=== PATIENT | male | born 2000 | race Caucasian/White ===

== ENCOUNTER 2021-04-18 11:58 | Emergency (ER) | payer BC ==
[~2021-04-18] VITALS: Ht 167.6 cm; Wt 75.0 kg
--- NOTE | 2021-04-18 12:55 | PHYS DOC ---
General Adult EDM: Chief Complaint: SUICDAL IDEATION HPI: HPI: Patient is a 20 year old male presents emergency department with mother bedside reporting he had a panic attack just prior to arrival the emergency room today. Patient reports he has history of panic attacks, took 1/2 mg Xanax approximately 1 hour ago and was unable to handle the overwhelming sensations of having several people around him while he was at [employer] today. Patient's mother reports that the patient stated "please do not let me kill myself ", patient's mother reports she was told by his counselor to bring him to the emergency department for any SI/HI statements. Patient currently denies homicidal or suicidal ideations. States he still feels overwhelmed however reports his sensations of panic have starting to resolve. 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 Patient denies other physical complaints or physical concerns. (SHERRI VÁZQUEZ APRN) Review of Systems: Review of Systems: 14 body systems of review of systems have been reviewed. See HPI for pertinent positives and negative responses, otherwise all other systems are negative, nonpertinent or noncontributory. Constitutional: Negative except as outlined in HPI above. Skin: Negative except as outlined in HPI above. Eyes: Negative except as outlined in HPI above. HENT: Negative except as outlined in HPI above. Respiratory: Negative except as outlined in HPI above. Cardiovascular: Negative except as outlined in HPI above. GI: Negative except as outlined in HPI above. : Negative except as outlined in HPI above. Musculoskeletal: Negative except as outlined in HPI above. Integument: Negative except as outlined in HPI above. Neurologic: Negative except as outlined in HPI above. Endocrine: Negative except as outlined in HPI above. Lymphatic: Negative except as outlined in HPI above. Psychiatric: Negative except as outlined in HPI above. (SHERRI VÁZQUEZ APRN) Heart Score: C/O Chest Pain: No Risk Factors: Risk Factors: DM, Current or recent (<one month) smoker, HTN, HLP, family history of CAD, obesity. Risk Scores: Score 0 - 3: 2.5% MACE over next 6 weeks - Discharge Home Score 4 - 6: 20.3% MACE over next 6 weeks - Admit for Clinical Observation Score 7 - 10: 72.7% MACE over next 6 weeks - Early Invasive Strategies (SHERRI VÁZQUEZ APRN) Physical Exam: PE: Constitutional: Well developed, well nourished, no acute distress, non-toxic appearance. 20-year-old male in no apparent distress. HENT: Normocephalic, atraumatic. Eyes: Conjunctiva normal, no discharge. Neck: Normal range of motion, no stridor. Cardiovascular: No cyanosis appreciated, distal cap refill less than 2 seconds. Lungs & Thorax: Patient is in no respiratory distress, no audible adventitious lung sounds appreciated. Abdomen: Nontender, no abnormalities noted. Skin: Warm, dry, no erythema, no rash. Abrasions to forehead, nonbleeding, noninfectious. Back: No tenderness, no deformities. Extremities: No tenderness, no cyanosis, no clubbing, ROM intact, no edema. [] Neurologic: Alert and oriented X 3, normal motor function, normal sensory function, no focal deficits noted. Psychologic: Affect flat, judgement normal, mood normal. (SHERRI VÁZQUEZ APRN) Current Patient Data: Vital Signs: Vital Signs Date Time Temp Pulse Resp B/P (MAP) Pulse Ox O2 Delivery O2 Flow Rate FiO2 04/18/21 17:00 72 12 120/58 (78) 96 Room Air 04/18/21 15:30 78 18 97 Room Air 04/18/21 14:30 76 22 97 Room Air 04/18/21 13:30 70 16 98 04/18/21 12:31 98.6 70 12 134/62 (86) 96 Room Air 98.6 (CLARK MALONEY DO) EKG: EKG: [] (SHERRI VÁZQUEZ APRN) Radiology/Procedures: Radiology/Procedures: [] (SHERRI VÁZQUEZ APRN) Course & Med Decision Making: Course & Med Decision Making Pertinent Labs and Imaging studies reviewed. (See chart for details) 20-year-old male, vital signs reviewed, presents emergency department concerning suicidal ideation prior to arrival. physical examination unremarkable, the patient is not suicidal or homicidal however concerning for verbal suicidal ideation exclaimed to mother, discussed with patient recommended mental health evaluation, patient is amenable to this ED plan, will consult PAT team to evaluate psychiatric component, will order CBC, CMP, urinalysis assay, urine drug screen, alcohol level. Patient is currently calm in bed, mother is at bedside. Spoke with PAT felt hat steamer Makenzie to review patient case and ED presentation, will come down to evaluate in ED soon. At 1500, PAT felt hat steamer Makenzie at bedside to interview patient, patient remains calm and cooperative at this time. Patient evaluated by qualified mental health professional who reviewed any appropriate supporting documentation and previous available medical records and feels the patient does not meet criteria for admission to a mental health facility, please refer to the qualified mental health professional's documentation for details regarding this decision. Will discharge patient with the appropriate mental health resources and follow-up. PAT felt hat steamer Makenzie recommend signs safety plan and discharge to home with strict follow-up with psychiatry. Patient is amenable to ED discharge planning. (SHERRI VÁZQUEZ APRN) Course & Med Decision Making I have reviewed and was available for consultation in the emergency department for this patient that was seen by midlevel provider. Agree with plan. Clark Maloney DO (CLARK MALONEY DO) Dragjay Disclaimer: Praveena Disclaimer: This electronic medical record was generated, in whole or in part, using a voice recognition dictation system. (SHERRI VÁZQUEZ APRN) Departure Departure Impression: Primary Impression: Panic attack Disposition: HOME / SELF CARE / HOMELESS Condition: GOOD Patient Instructions: Anxiety and Panic Attacks Additional Instructions: You were seen today in the emergency department for a panic attack. You were screened by a mental health professional, you and the PAT felt hat steamer formulated a safety plan. Please follow-up with your psychiatrist tomorrow as you have indicated. Please return to the emergency department immediately for worsening symptoms or other concerns. Thank you for visiting our Emergency Department. It was a pleasure taking care of you today in the emergency department and we appreciate you trusting us with your care. If any additional problems come up don't hesitate to return to visit us. Please follow up with your primary care provider so they can plan additional care if needed and know about the problem that you had. If symptoms worsen come back to the Emergency Department. Any concerning symptoms that start such as chest pain, shortness of air, weakness or numbness on one side of the body, running high fevers or any other concerning symptoms return to the ER. EMERGENCY DEPARTMENT GENERAL DISCHARGE INSTRUCTIONS Thank you for coming to [facility] Emergency Department (ED) today and trusting us with you care. We trust that you had a positive experience in our Emergency Department. If you wish to speak to the department management, you may call the Director at [phone]. YOUR FOLLOW UP INSTRUCTIONS ARE FOLLOWS: 1. Do you have a private Doctor? If you do not have a private doctor, please ask for a resource list of physicians or clinics that may be able to assist you with follow up care. 2. The Emergency Physicain has interpreted your x-rays. The X-Ray specialist will also review them. If there is a change in the findings, you will be notified in 48 hours when at all possible. 3. A lab test or culture has been done, your results will be reviewed and you will be notified if you need a change in treatment. ADDITIONAL INSTRUCTIONS AND INFORMATION: 1. Your care today has been supervised by a physician who is specially trained in emergency care. Many problems require more than one evaluation for a complete diagnosis and treatment. We recommend that you schedule your follow up appointment as recommended to ensure complete treatment of you illness or injury. If you are unable to obtain follow up care and continue to have a problem, or if your condition worsens, we recommend that you return to the ED. 2. We are not able to safely determine your condition over the phone nor are we able to give sound medical advice over the phone. For these safety reasons, if you call for medical advice we will ask you to come to the ED for further evaluation. 3. If you have any questions regarding these discharge instructions please call the ED at [phone]. SAFETY INFORMATION: In the interest of safety, wellness, and injury prevention; we encourage you to wear your sealbelt, if you smoke; quite smoking, and we encourage family to use a protective helmet for bicycling and other sporting events that present an increased risk for head injury. IF YOUR SYMPTOMS WORSEN OR NEW SYMPTOMS DEVELOP, OR YOU HAVE CONCERNS ABOUT YOUR CONDITION; OR IF YOUR CONDITION WORSENS WHILE YOU ARE WAITING FOR YOUR FOLLOW UP APPOINTMENT; EITHER CONTACT YOUR PRIMARY CARE DOCTOR, THE PHYSICIAN WHOSE NAME AND NUMBER YOU WERE GIVEN, OR RETURN TO THE ED IMMEDIATELY. SHERRI VÁZQUEZ APRN Apr 18, 2021 12:55 CLARK MALONEY DO Apr 18, 2021 17:24
[2021-04-18 13:27] LABS: BASO # 0.1 x10^3/uL (0.0-0.2); BASO % 1 % (0-3); EOS % 1 % (0-3); HEMATOCRIT 41.4 % (39.0-53.0); HEMOGLOBIN 14.5 g/dL (13.0-17.5); LYMPH # 2.1 x10^3/uL (1.0-4.8); LYMPH % 31 % (24-48); MEAN CORPUSCULAR HEMOGLOBIN 30 pg (25-35); MEAN CORPUSCULAR HGB CONC 35 g/dL (31-37); MEAN CORPUSCULAR VOLUME 87 fL (79-100); MONO # 0.5 x10^3/uL (0.0-1.1); MONO % 8 % (0-9); NEUT # 3.8 x10^3/uL (1.8-7.7); NEUT % 59 % (31-73); PLATELET COUNT 277 x10^3/uL (140-400); RED BLOOD COUNT 4.77 x10^6/uL (4.30-5.70); RED CELL DISTRIBUTION WIDTH 12.6 % (11.5-14.5); WHITE BLOOD COUNT 6.5 x10^3/uL (4.0-11.0)
[2021-04-18 13:30] LABS: CREATININE 1.1 mg/dL (0.7-1.3); GFR 85.3; POTASSIUM 4.2 mmol/L (3.5-5.1)
[2021-04-18 13:36] LABS: ALBUMIN/GLOBULIN RATIO 1.3 (1.0-1.7); TOTAL BILIRUBIN 0.3 mg/dL (0.2-1.0); TOTAL PROTEIN 7.1 g/dL (6.4-8.2)
[2021-04-18 14:43] LABS: BILIRUBIN,URINE NEGATIVE (NEG); CLARITY,URINE CLEAR; COLOR,URINE YELLOW; NITRITE,URINE NEGATIVE (NEG); PH,URINE 7.5 (<5.0-8.0); PROTEIN,URINE NEGATIVE (NEG-TRACE); UROBILINOGEN,URINE 0.2 mg/dL (0.2 mg/dL)
[2021-04-18 14:46] LABS: AMPHETAMINE/METHAMPHETAMINE NEG (NEG); BARBITURATES NEG (NEG); BENZODIAZEPINES NEG (NEG); CANNABINOIDS NEG (NEG); COCAINE NEG (NEG); METHADONE NEG (NEG); OPIATES NEG (NEG); PHENCYCLIDINE NEG (NEG)
[2021-04-18 14:53] LABS: BACTERIA,URINE 0 /HPF (0-FEW); RBC,URINE 0 /HPF (0-2); WBC,URINE 0 /HPF (0-4)
[2021-04-18 17:00] VITALS: BP 120/58
== END 2021-04-18 17:00 | disposition home or self-care (01) ==
LOC: ER 11:58
DX: S00.81XA Abrasion of other part of head, initial encounter (principal); F41.0 Panic disorder [episodic paroxysmal anxiety]; X58.XXXA Exposure to other specified factors, initial encounter; Y93.89 Activity, other specified; Y92.89 Other specified places as the place of occurrence of the external cause; Y99.8 Other external cause status
CPT/HCPCS: 36415; 80053; 80307; 81001; 85025; 99285; G0480

== ENCOUNTER → 2021-06-22 | Outpatient (CLI) | payer BC ==
--- NOTE | 2021-06-22 14:54 | EEG ---
DATE OF SERVICE: 06/22/2021 EEG NUMBER: [id number] performed on 06/22/2021. OBJECTIVE: The patient is a 21-year-old male with possible seizures. DESCRIPTION: This is a digital study. Electrodes are placed according to the international 10-20 system. Bipolar and referential montages are available. Activation procedures typically include hyperventilation and intermittent photic stimulation. INTERPRETATION: The waking background consists of 9-10 Hz, 50-100 microvolt activity, symmetrically distributed over parietooccipital regions and reactive to eye opening. Hyperventilation and intermittent photic stimulation are noncontributory. Stage I sleep is achieved with normal electroencephalogram patterns. All computer -- identified abnormalities are reviewed and none are actually abnormal. IMPRESSION: This electroencephalogram with the patient awake and asleep is within normal limits. There is no focal, paroxysmal, or epileptiform activity. Thank you for letting us help with the patient's care. JOHN PAUL DR: Anthony TID: [id number] CC: Maribel Rosales NP, BRET GUNN MD
== END ==
LOC: RT 08:49
PROVIDERS: ATTEND Nurse Practitioner Family
DX: R56.9 Unspecified convulsions (principal)
CPT/HCPCS: 95816